=== PATIENT | female | born 1940 | race Caucasian/White ===

== ENCOUNTER → 2017-06-22 | Outpatient (CLI) | payer MEDICARE ==
[~2017-06-22] MED LIST: ACYCLOVIR800 MG PO; ASPIRIN81 M1 PO; CARTIA XT300 MG PO; ENALAPRIL20 MG PO; FISH OIL; HYDRODIURIL25 MG PO; LESCOL XL80 MG PO; LOVASTATIN40 MG PO; MULTIVITAMIN; Transderm Nitr0.6 MG PO; ZETIA10 MG PO; [UNRECOGNIZED DRUG - OTHER]
== END ==
LOC: LAB 11:03
DX: E83.52 Hypercalcemia (principal)